=== PATIENT | female | born 1950 | race Hispanic/Latino ===

== ENCOUNTER 2020-10-15 06:25 | Day surgery (SDC) | payer MEDICARE ==
[2020-10-15] MEDS ORDERED: SODIUM CHLORIDE 0.9% 500 ML 500 ML IV SCH (07:00)
[2020-10-15 07:25] LABS: Basophils # (Auto) 0.1 K/mm3 (0.0-0.1); Basophils % (Auto) 1.1 % (0.0-1.8); Eosinophils # (Auto) 0.3 K/mm3 (0.0-0.4); Eosinophils % (Auto) 3.7 % (0.0-4.3); Hematocrit 36.6 % (30.3-42.9); Hemoglobin 12.8 gm/dl (10.1-14.3); Lymphocytes # (Auto) 1.8 K/mm3 (1.2-5.4); Lymphocytes % (Auto) 22.1 % (13.4-35.0); Mean Corpuscular HGB Conc 35 % (30-34); Mean Corpuscular Volume 96 fl (79-97); Monocytes # (Auto) 0.9 K/mm3 (0.0-0.8); Monocytes % (Auto) 11.5 % (0.0-7.3); Platelet Count 270 K/mm3 (140-440); Red Blood Count 3.83 M/mm3 (3.65-5.03)
[2020-10-15 07:34] LABS: INR 0.95 (0.87-1.13)
[2020-10-15 07:35] LABS: Partial Thromboplastin Time 28.2 Sec. (24.2-36.6)
[2020-10-15 07:36] LABS: Blood Urea Nitrogen 10 mg/dL (7-17); Hemolysis Index 3
[2020-10-15 07:52] LABS: BUN/Creatinine Ratio 17
[2020-10-15] MEDS ORDERED: HEPARIN 10,000 UNITS/10 ML VIAL ONE (08:03)
[2020-10-15] MEDS ORDERED: HEPARIN/NS 5000 UNIT/500ML 1,000 ML IR ONE (08:03)
[2020-10-15] MEDS: fentaNYL 100 MCG/2 ML INJ ONE ×2 (08:33→08:40)
[2020-10-15] MEDS: MIDAZOLAM 2 MG/2 ML INJ ONE ×2 (08:34→08:40)
[2020-10-15] MEDS: LIDOCAINE (2%) 20 MG/1 ML VIAL 20 ML MDV INFILTRATI ONE ×2 (08:34→08:43)
[2020-10-15] MEDS ORDERED: ceFAZolin/Water 2 GM/20 ML 2 GM/20 ML SYRINGE IV ONE (08:38)
--- NOTE | 2020-10-15 10:03 | Short Stay Summary ---
Short Stay Documentation Date of service: 10/15/20 - History Principal diagnosis: PVD with claudication H&P: obtained from office - Allergies and Medications Current Medications: Allergies clindamycin Allergy (Severe, Verified 10/15/20 06:49) Anaphylaxis codeine Allergy (Verified 10/15/20 06:49) Nausea Home Medications Medication Instructions Recorded Confirmed Last Taken Type Calcium Citrate/Vitamin D3 1 each PO BID 12/13/17 10/15/20 10/14/20 History [Citracal-Vit D3 200 mg-250 Tab] 1 tab Magnesium 250 mg PO DAILY 12/13/17 10/15/20 10/14/20 History 250 mg Potassium 99 mg PO DAILY 12/13/17 10/15/20 10/14/20 History 99 mg Simvastatin 40 mg PO QHS 12/13/17 10/15/20 10/14/20 History 40 mg amLODIPine [Norvasc] 5 mg PO DAILY 12/13/17 10/15/20 10/14/20 History 5 mg Ascorbic Acid/Ascorbate Sodium 500 mg PO DAILY 10/15/20 10/15/20 10/14/20 History [Vit C-Ny Hips 500 mg Chew Tb] 500 mg Aspirin [Aspirin BABY CHEW TAB] 81 mg PO DAILY 10/15/20 10/15/20 10/14/20 History 81 mg Biotin [Biotin 5,000 rapdis] 5,000 mcg PO DAILY 10/15/20 10/15/20 10/14/20 History 5000 mcg Cholecalciferol Vit D3 [Vitamin D3 5,000 units PO DAILY 10/15/20 10/15/20 10/14/20 History 1,000 UNIT TAB] 5000 units FLUoxetine [PROzac] 20 mg PO DAILY 10/15/20 10/15/20 10/14/20 History Lmefolate/B3/Mahesh/Zn/Monique/Chrom 1 tab PO BID 10/15/20 10/15/20 10/14/20 History [Nicotinamide Tablet] 500 mg Melatonin [Melatonin 10MG TAB] 10 mg PO HS PRN 10/15/20 10/15/20 10/12/20 History 10 mg Active Medications Sodium Chloride (Nacl 0.9% 500 Ml) 500 mls @ 50 mls/hr IV DIRECT EMMANUEL Last Admin: 10/15/20 08:15 Dose: 50 mls/hr Documented by: - Brief post op/procedure progress note Date of procedure: 10/15/20 Pre-op diagnosis: PVD with claudication Post-op diagnosis: same Procedure: Bilateral common iliac artery stent placement Anesthesia: local Surgeon: FATIMAH HELM Estimated blood loss: minimal Pathology: none Condition: stable - Disposition Condition at discharge: Good Disposition: 01 HOME / SELF CARE / HOMELESS Short Stay Discharge Plan Activity: advance as tolerated Weight Bearing Status: Weight Bear as Tolerated Diet: regular Wound: keep clean and dry, per your surgeon's advice (Keep right pressure dressing on until tomorrow morning) Follow up with: LADARIUS COLES [Other] - 7 Days
--- NOTE | 2020-10-15 10:07 | Operative Report ---
Operative Report Operative Report: Exam: Bilateral common iliac artery stent placement Clinical indication: Patient with a history of PVD with previous diagnostic angiogram demonstrating significant stenosis in her common iliac arteries bilaterally as well as the distal abdominal aorta. Date: 10/15/2020 Procedure: Following an explanation of the risks, benefits and alternatives; written informed consent was obtained. The patient was brought to the angiographic suite and placed in supine position on the examination table. Initial ultrasound evaluation of the groins demonstrated patent common femoral arteries bilaterally. The patient's bilateral groins were prepped and draped in the usual sterile fashion. Under ultrasound guidance, the right common femoral artery was cannulated with a 7 cm 21-gauge needle. A 0.018 guidewire was advanced centrally. The needle was removed and a microsheath placed. The 0.018 guidewire was exchanged for a 0.035 guidewire and the micro sheath exchanged for a 5 Urdu vascular sheath. Access to the left common femoral artery was obtained in a similar fashion and a second 5 Urdu sheath placed. An Omni Flush catheter was advanced over the guidewire through the right sheath to the distal abdominal aorta. Angiography was performed. This demonstrates stenosis of the distal abdominal aorta, right common iliac artery and left common iliac artery. The sheaths were upsized over the guidewires to 7 Urdu sheaths. A marking pigtail was advanced over the guidewire through the right sheath to measure the distance from the stent landing zone 2 the takeoff of the internal iliac artery. Decision was made regarding stent length. An 8 mm x 59 mm [place] VBX stent graft was advanced through the right sheath, an 8 mm x 59 mm [place] VBX stent graft was advanced through the left sheath. The stents were deployed in kissing fashion from the distal abdominal aorta until the distal common iliac arteries bilaterally. The stent balloons were insufflated to 12 carmen bilaterally to oppose the stents. The stent balloons were then removed over the guidewires and the Omni Flush catheter again advanced through the right sheath to the distal abdominal aorta. Angiography was performed. This demonstrates reduction of the stenosis within the distal abdominal aorta and bilateral common iliac arteries. The Omni Flush catheter was then removed over the guidewire. Hemostasis was achieved in the left groin using an Angio-Seal arterial closure device. In the right groin, the Angio-Seal did not appropriately seal and hemostasis was achieved using manual compression. Sterile compression dressings were applied to both groins. The patient tolerated the procedure well. There were no immediate postprocedure complications. Conscious sedation was performed under the guidance of radiologic nursing. Continuous cardiopulmonary monitoring was utilized. Impression: Ultrasound and fluoroscopic guided placement of bilateral common iliac artery stents that extend into the distal abdominal aorta to treat narrowings within the distal abdominal aorta and bilateral common iliac arteries.
[2020-10-15 13:47] VITALS: BP 150/78
== END 2020-10-15 14:15 | disposition home or self-care (01) ==
LOC: CATHLABREC 06:25
PROVIDERS: ATTEND Radiology Diagnostic Radiology
DX: I70.213 Atherosclerosis of native arteries of extremities with intermittent claudication, bilateral legs (principal); I10 Essential (primary) hypertension; E78.00 Pure hypercholesterolemia, unspecified; M19.90 Unspecified osteoarthritis, unspecified site; F32.9 Major depressive disorder, single episode, unspecified; Z87.891 Personal history of nicotine dependence; Z79.82 Long term (current) use of aspirin; Z79.899 Other long term (current) drug therapy; Z98.890 Other specified postprocedural states; Z88.5 Allergy status to narcotic agent; Z88.8 Allergy status to other drugs, medicaments and biological substances
CPT/HCPCS: 36415; 37221; 76937; 80048; 85025; 85610; 85730; C1760; C1769; C1874; C1887; C1894; J0690; J1644; J2250; J3010; J7040; Q9967